=== PATIENT | female | born 1985 | race Caucasian/White ===

== ENCOUNTER 2017-03-04 05:21 | Emergency (ER) | payer OTHER ==
[~2017-03-04] VITALS: Ht 170.2 cm; Wt 68.0 kg
[2017-03-04 06:13] LABS: AUTOMATED NEUTROPHIL # 3.2 TH/MM3 (1.8-7.7); BASOPHIL % 0.4 % (0.0-2.0); EOSINOPHIL # 0.2 TH/MM3 (0-0.4); EOSINOPHIL % 2.2 % (0.0-4.0); HEMATOCRIT 38.9 % (35.0-46.0); HEMO FLAGS DIFF FINAL; LYMPH % 43.9 % (9.0-44.0); LYMPHOCYTE # 3.1 TH/MM3 (1.0-4.8); MEAN CELL VOLUME 93.2 FL (80.0-100.0); MEAN CORPUSCULAR HEMOGLOBIN 32.2 PG (27.0-34.0); MEAN CORPUSCULAR HGB CONC 34.5 % (32.0-36.0); MONO % 7.6 % (0.0-8.0); NEUT % 45.9 % (16.0-70.0); PLATELET COUNT 402 TH/MM3 (150-450); RED BLOOD COUNT 4.18 MIL/MM3 (4.00-5.30); RED CELL DISTRIBUTION WIDTH 13.1 % (11.6-17.2)
[2017-03-04 06:15] LABS: AMPHETAMINE, URINE NEG (NEG); BARBITURATES, URINE NEG (NEG); COCAINE, URINE NEG (NEG)
[2017-03-04] MEDS ORDERED: IBUPROFEN 600 MG TAB PO ONE (06:15)
--- NOTE | 2017-03-04 06:19 | PD ---
HPI Chief Complaint: Psychiatric Symptoms Time Seen by Provider: 06:12 Travel History International Travel<30 days: No Contact w/Intl Traveler<30days: No Traveled to known affect area: No History of Present Illness HPI 31-year-old white female presents to emergency department under Hauser act by PD. Patient performed suicide gesture cutting to her left wrist. She states that she had gone out this evening with her ex- for her birthday. She had dinner and drinks. She states that they have been attempting to get back together. Unfortunately the evening did not and well. She states that she is feeling increasingly depressed. She has had thoughts of self-harm. She denies any homicidal ideation. She had called the [facility] inform them that she has been having bad thoughts. She denies any toxic ingestions. She does admit to smoking marijuana. No other drugs. Denies . Last menstrual. Last week. She has had a history of anxiety, depression and PTSD. She states that she has not been on her medications the way she has been prescribed. FOR[facility]LY [facility] Past Medical History Narrative Medical Anxiety, depression, PTSD Immunizations Current: Yes Tetanus Vaccination: Unknown Influenza Vaccination: No ?: Unknown Past Surgical History Surgical History: No Previous Surgery Social History Alcohol Use: Yes (everyday) Tobacco Use: Yes Substance Use: Yes (weed) Allergies-Medications (Allergen,Severity, Reaction): Coded Allergies: No Known Allergies (Unverified , 03/04/17) Reported Meds & Prescriptions Reported Meds & Active Scripts Active No Active Prescriptions or Reported Medications Review of Systems Except as stated in HPI: all other systems reviewed are Neg Psychiatric: Positive: Depression, Suicidal Ideations, Mood Disorder, Substance Abuse, No: Anxiety, Disorder of Thought, Homicidal Ideation Physical Exam Narrative GENERAL: Well-nourished, well-developed patient. SKIN: Warm and dry. Patient has a 3 cm superficial laceration to the left wrist. No deep injury. No nerve or vascular injury. No foreign body. HEAD: Normocephalic and atraumatic. EYES: No scleral icterus. No injection or drainage. ENT: No nasal drainage noted. Mucous membranes pink. Airway patent. NECK: Supple, trachea midline. Moves head freely without obvious discomfort. CARDIOVASCULAR: Regular rate and rhythm without murmurs, gallops, or rubs. RESPIRATORY: Breath sounds equal bilaterally. No accessory muscle use. GASTROINTESTINAL: Abdomen soft, non-tender, nondistended. EXTREMITIES: No cyanosis or edema. BACK: Nontender without obvious deformity. No CVA tenderness. NEURO: Patient is alert and oriented. no sensorimotor deficits. Nonfocal. Normal speech. PSYCH: No delusions. No auditory or visual hallucinations. Data Data Last Documented VS Vital Signs Date Time Temp Pulse Resp B/P Pulse Ox O2 Delivery O2 Flow Rate FiO2 03/04/17 05:40 16 Orders Complete Blood Count With Diff (03/04/17 05:37) Comprehensive Metabolic Panel (03/04/17 05:37) Ed Urine Pregnancytest Poc (03/04/17 05:37) Psych Screen (03/04/17 05:37) Drug Screen, Random Urine (03/04/17 05:37) Alcohol (Ethanol) (03/04/17 05:37) Salicylates (Aspirin) (03/04/17 05:37) Tylenol (Acetaminophen) (03/04/17 05:37) Ibuprofen (Motrin) (03/04/17 06:15) Labs Laboratory Tests Test 03/04/17 05:45 White Blood Count 7.0 TH/MM3 Red Blood Count 4.18 MIL/MM3 Hemoglobin 13.4 GM/DL Hematocrit 38.9 % Mean Corpuscular Volume 93.2 FL Mean Corpuscular Hemoglobin 32.2 PG Mean Corpuscular Hemoglobin 34.5 % Concent Red Cell Distribution Width 13.1 % Platelet Count 402 TH/MM3 Mean Platelet Volume 7.0 FL Neutrophils (%) (Auto) 45.9 % Lymphocytes (%) (Auto) 43.9 % Monocytes (%) (Auto) 7.6 % Eosinophils (%) (Auto) 2.2 % Basophils (%) (Auto) 0.4 % Neutrophils # (Auto) 3.2 TH/MM3 Lymphocytes # (Auto) 3.1 TH/MM3 Monocytes # (Auto) 0.5 TH/MM3 Eosinophils # (Auto) 0.2 TH/MM3 Basophils # (Auto) 0.0 TH/MM3 CBC Comment DIFF FINAL Differential Comment Salicylates Level 2.3 MG/DL Urine Opiates Screen NEG Urine Barbiturates Screen NEG Urine Amphetamines Screen NEG Urine Benzodiazepines Screen NEG Urine Cocaine Screen NEG Urine Cannabinoids Screen POS MDM Medical Decision Making Medical Screen Exam Complete: Yes Emergency Medical Condition: Yes Medical Record Reviewed: Yes Interpretation(s) Laboratory Tests Test 03/04/17 05:45 White Blood Count 7.0 TH/MM3 Red Blood Count 4.18 MIL/MM3 Hemoglobin 13.4 GM/DL Hematocrit 38.9 % Mean Corpuscular Volume 93.2 FL Mean Corpuscular Hemoglobin 32.2 PG Mean Corpuscular Hemoglobin 34.5 % Concent Red Cell Distribution Width 13.1 % Platelet Count 402 TH/MM3 Mean Platelet Volume 7.0 FL Neutrophils (%) (Auto) 45.9 % Lymphocytes (%) (Auto) 43.9 % Monocytes (%) (Auto) 7.6 % Eosinophils (%) (Auto) 2.2 % Basophils (%) (Auto) 0.4 % Neutrophils # (Auto) 3.2 TH/MM3 Lymphocytes # (Auto) 3.1 TH/MM3 Monocytes # (Auto) 0.5 TH/MM3 Eosinophils # (Auto) 0.2 TH/MM3 Basophils # (Auto) 0.0 TH/MM3 CBC Comment DIFF FINAL Differential Comment Salicylates Level 2.3 MG/DL Urine Opiates Screen NEG Urine Barbiturates Screen NEG Urine Amphetamines Screen NEG Urine Benzodiazepines Screen NEG Urine Cocaine Screen NEG Urine Cannabinoids Screen POS Differential Diagnosis MDM: High Differential diagnoses: Schizophrenia, schizoaffective disorder, bipolar, anxiety, depression, adjustment reaction, mood disorder NOS, ODD, depressive disorder NOS, dementia, dementia with agitation, psychosis NOS, substance induced mood disorder, intermittent explosive disorder, Asperger syndrome, infection,electrolyte abnormality, malingering. Narrative Course Mental health screening discussed with the patient. Psychiatric screen ordered. Patient's laceration is closed with Steri-Strips. The patient is been medically cleared. This is substance induced mood disorder, depression Diagnosis Primary Impression: Substance induced mood disorder Additional Impression: Depression Qualified Code: F32.9 - Depression, unspecified depression type Scripts No Active Prescriptions or Reported Meds Condition: Cameron Arias Mar 04, 2017 06:19
[2017-03-04 06:58] LABS: ALKALINE PHOSPHATASE 96 U/L (45-117); ALT (GPT) 22 U/L (10-53); ANION GAP 11 MEQ/L (5-15); AST (GOT) 28 U/L (15-37); BICARBONATE 24.7 MEQ/L (21.0-32.0); BLOOD UREA NITROGEN 8 MG/DL (7-18); CHLORIDE 108 MEQ/L (98-107); GLOMERULAR FILTRATION RATE 102 ML/MIN (>89); POTASSIUM 3.9 MEQ/L (3.5-5.1); SODIUM (NA) 144 MEQ/L (136-145); TOTAL BILIRUBIN ADULT 0.2 MG/DL (0.2-1.0)
[2017-03-04 07:00] LABS: ACETAMINOPHEN LESS THAN 2.0 MCG/ML (10.0-30.0)
[2017-03-04 08:30] VITALS: BP 127/72; PULSE 81; RESP 18; O2SAT 98
[2017-03-04 12:00] VITALS: BP 129/72; PULSE 87; RESP 18; O2SAT 98
[2017-03-04 14:30] VITALS: BP 130/76; PULSE 86; RESP 18; O2SAT 98
--- NOTE | 2017-03-04 16:04 | PD ---
History of Present Illness Chief Complaint: Psychiatric Symptoms Time Seen by Provider: 15:45 Travel History International Travel<30 Days: No Contact w/Intl Traveler<30days: No Known affected area: No Legal Status Legal Status: Hauser Act Hauser Act Signed By: Doris Hauser Act Comment: BA signed by: TOLU TOMPKINS Badge#[id number], Case#[id number] History of Present Illness: Patient apparently was Hauser acted last night after police were called from a veterans hotline. Patient states that she called the hotline because she was depressed and markedly intoxicated. She and her have been trying to work things out but it is not going well. In fact, the patient hears from her mother, in front of her physician, that the does not want to try to make the marriage work any longer. Patient took this news rather well and continues to make plans for job interviews and to be checked at the [facility] and put back on her medications. Apparently she was noncompliant with her mood stabilizing anti-anxiety medicines. She is no longer intoxicated and she verbally contracts for safety. She shows no evidence of psychotic thinking and indicates that her cognition is intact. She is verbally michelle for safety. [facility] Past Medical History Medical History: Denies Significant Hx Immunizations Current: Yes Tetanus Vaccination: Unknown Influenza Vaccination: No ?: Unknown Past Surgical History Surgical History: No Previous Surgery Psychiatric History Psychiatric History Hx Psychiatric Treatment: None prior to joining [employer] (04/05/15) admits to mood disorder symptoms and anxiety since that time. History of Inpatient Treatment: Yes Guns or firearms in home: No Social History Hx Alcohol Use: Yes (everyday) Hx Tobacco Use: Yes Hx Substance Use: Yes Substance Use Type: Alcohol Hx of Substance Use Treatment: Yes Allergies-Medications (Allergen,Severity, Reaction): Coded Allergies: No Known Allergies (Unverified , 03/04/17) Reported Meds & Prescriptions Reported Meds & Active Scripts Active No Active Prescriptions or Reported Medications Review of Systems ROS Limitations: Clinical Condition Except as stated in HPI: all other systems reviewed are Neg Exam Exam Limitations: Clinical Condition, Intoxication Alert: Yes [place]: Person, Place, Date, Situation Affect: Appropriate Speech: Clear, Logical Eye Contact: Normal Memory Intact: Immediate, Recent, Remote Insight/Judgement Adequate except for use of alcohol and marijuana. [facility] Medical Decision Making Medical Record Reviewed: Yes Assessment/Plan Patient's Hauser act is being lifted and she does not meet criteria for involuntary hospitalization at this time. She is calm and pleasant and cooperative and even joking with this physician. She has plans for the future including job interviews and 2 be checked out by the [facility] and return to her medications. She understands that she and her may not have a future together but the patient is still planning for her own future. No suicidal or homicidal ideation, plan or intention at this time and no evidence of psychotic thinking or cognitive impairment. Orders Complete Blood Count With Diff (03/04/17 05:37) Comprehensive Metabolic Panel (03/04/17 05:37) Ed Urine Pregnancytest Poc (03/04/17 05:37) Psych Screen (03/04/17 05:37) Drug Screen, Random Urine (03/04/17 05:37) Alcohol (Ethanol) (03/04/17 05:37) Salicylates (Aspirin) (03/04/17 05:37) Tylenol (Acetaminophen) (03/04/17 05:37) Ibuprofen (Motrin) (03/04/17 06:15) Results Vital Signs Date Time Temp Pulse Resp B/P Pulse Ox O2 Delivery O2 Flow Rate FiO2 03/04/17 14:30 86 18 130/76 98 Room Air 03/04/17 12:00 87 18 129/72 98 Room Air 03/04/17 08:30 81 18 127/72 98 Room Air 03/04/17 07:17 18 03/04/17 05:40 16 Laboratory Tests Test 03/04/17 05:45 White Blood Count 7.0 Red Blood Count 4.18 Hemoglobin 13.4 Hematocrit 38.9 Mean Corpuscular Volume 93.2 Mean Corpuscular Hemoglobin 32.2 Mean Corpuscular Hemoglobin 34.5 Concent Red Cell Distribution Width 13.1 Platelet Count 402 Mean Platelet Volume 7.0 Neutrophils (%) (Auto) 45.9 Lymphocytes (%) (Auto) 43.9 Monocytes (%) (Auto) 7.6 Eosinophils (%) (Auto) 2.2 Basophils (%) (Auto) 0.4 Neutrophils # (Auto) 3.2 Lymphocytes # (Auto) 3.1 Monocytes # (Auto) 0.5 Eosinophils # (Auto) 0.2 Basophils # (Auto) 0.0 CBC Comment DIFF FINAL Differential Comment Sodium Level 144 Potassium Level 3.9 Chloride Level 108 Carbon Dioxide Level 24.7 Anion Gap 11 Blood Urea Nitrogen 8 Creatinine 0.68 Estimat Glomerular Filtration 102 Rate Random Glucose 95 Calcium Level 8.1 Total Bilirubin 0.2 Aspartate Amino Transf 28 (AST/SGOT) Alanine Aminotransferase 22 (ALT/SGPT) Alkaline Phosphatase 96 Total Protein 6.9 Albumin 3.3 Salicylates Level 2.3 Urine Opiates Screen NEG Acetaminophen Level LESS THAN 2.0 Urine Barbiturates Screen NEG Urine Amphetamines Screen NEG Urine Benzodiazepines Screen NEG Urine Cocaine Screen NEG Urine Cannabinoids Screen POS Ethyl Alcohol Level 235 Diagnosis Primary Impression: Substance induced mood disorder Additional Impression: Depression Prescriptions No Active Prescriptions or Reported Meds Condition: Stable Problem Qualifiers Additional Impression: Depression Qualified Code: F32.9 - Depression, unspecified depression type Mitesh Gonzalez MD Mar 04, 2017 16:04
== END 2017-03-04 18:51 | disposition home or self-care (01) ==
LOC: NEPA 05:21 → NEPJ 18:51
DX: F10.94 Alcohol use, unspecified with alcohol-induced mood disorder (principal); F12.90 Cannabis use, unspecified, uncomplicated; Y90.7 Blood alcohol level of 200-239 mg/100 ml; F32.9 Major depressive disorder, single episode, unspecified; F33.9 Major depressive disorder, recurrent, unspecified; F43.10 Post-traumatic stress disorder, unspecified; Z72.0 Tobacco use
CPT/HCPCS: 80053; 80307; 84703; 85025; 99285